=== PATIENT | male | born 1955 | race Caucasian/White ===

== ENCOUNTER 2022-06-01 08:24 | Emergency (ER) | payer MEDICAID, SELFPAY ==
[2022-06-01 08:28] VITALS: BP 154/94; PULSE 84; RESP 17; TEMP 36.8; O2SAT 100; BMI 19.8
--- NOTE | 2022-06-01 09:03 | ED_ITS ---
HPI - Skin/Abscess/Foreign Bdy General: Chief complaint: Skin/Abscess/Foreign Body Stated complaint: Body Rash Time Seen by Provider: 06/01/22 08:35 History of Present Illness: Patient is a 66-year-old male who comes to the ED with a rash. 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 About 6 weeks ago he developed a rash on his arms that was pruritic and ooze some clear type drainage. He has tried using calamine lotion but it has not helped. Rash is spread up onto neck and face. Denies any lip or tongue swelling, trouble breathing, throat tightening, vomiting or diarrhea. Patient also complains of some dental pain. Associated symptoms: Deny chills, fever(s), nausea or vomiting Review of Systems Const: Denies: fever(s), chills or fatigue Eyes: Denies: change in vision or eye discomfort ENMT: Reports: dental pain; Denies: throat pain, odynophagia, nasal discharge or nasal congestion Card: Denies: chest pain, palpitations, edema, swelling of feet/ankles, dyspnea on exertion or orthopnea Resp: Denies: dyspnea, productive cough or non-productive cough GI: Denies: abdominal pain, nausea, vomiting, diarrhea, constipation or hematochezia : Denies: flank pain, difficulty urinating, dysuria or hematuria Musc: Denies: neck pain, back pain or extremity swelling Skin/Breast: Reports: rash; Denies: new lesions Neuro: Denies: headache(s), numbness in extremities or weakness in extremities [facility] ED PFSH: Medical History (Updated 06/02/22 @ 07:31 by YVETTE Woodward) No pertinent family history Surgical History (Updated 06/02/22 @ 07:28 by YVETTE Woodward) No pertinent past surgical history Physical Exam Const: COMMON NORMALS: no acute distress, patient oriented x3 and alert HENMT: COMMON NORMALS: normocephalic HEAD & SCALP: normocephalic MOUTH: Normal oral and palatal mucosa present TEETH & GINGIVA: Yes caries and Yes poor dentition THROAT: posterior oropharynx normal and uvula midline Neck/C-Spine: COMMON NORMALS: supple GENERAL: Yes normal visual inspection Resp: COMMON NORMALS: normal respiratory effort, No retractions, No use of accessory muscles and clear to auscultation bilaterally AUSCULTATION: clear to auscultation bilaterally Cardio: COMMON NORMALS: regular rate, regular rhythm, S1 normal heart sound present, S2 normal heart sound present, No gallops present (Cardio), No clicks present (Cardio), No murmurs present (Cardio) and Peripheral pulses 2+ throughout RATE: regular rate RHYTHM: regular rhythm HEART SOUNDS: S1 normal heart sound present and S2 normal heart sound present PERIPHERAL PULSES: Peripheral pulses 2+ throughout GI: COMMON NORMALS: Normal to inspection, nondistended, normoactive bowel sounds present, Soft to palpation, non-tender and no masses PALPATION: Yes Soft to palpation : COMMON NORMALS: Yes no CVA tenderness BLADDER/KIDNEY EXAM: Yes no CVA tenderness Back/Pelvis: COMMON NORMALS: no CVA tenderness Extremity: NARRATIVE EXTREMITY EXAM: Bilateral upper extremity erythemic maculopapular rash covering forearm. GENERAL: Yes normal exam except as noted Neuro: COMMON NORMALS: patient oriented x3 SENSORIUM/ORIENTATION: Yes alert GAIT: Yes Normal gait present Skin: NARRATIVE SKIN EXAM: Patient has erythemic maculopapular rash on bilateral forearms and neck. Patient presents here with contact dermatitis type rash. Course Vital Signs: Vital signs: Vital Signs Temperature 98.2 F 06/01/22 08:28 Pulse Rate 84 06/01/22 08:28 Respiratory Rate 17 06/01/22 08:28 Blood Pressure 154/94 06/01/22 08:28 Pulse Oximetry 100 06/01/22 08:28 Oxygen Delivery Me thod 06/01/22 08:28 MDM - Skin/Abscess/Foreign Bdy Medicial Decision Making Patient is a 66-year-old male who comes to the ED with a rash. 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 About 6 weeks ago he developed a rash on his arms that was pruritic and ooze some clear type drainage. He has tried using calamine lotion but it has not helped. Rash is spread up onto neck and face. Denies any lip or tongue swelling, trouble breathing, throat tightening, vomiting or diarrhea. Vitals are stable. Patient appears nontoxic acute distress or pain. Patient has erythemic maculopapular rash on bilateral forearms and neck. Patient has poor dental health with multiple caries and decayed teeth throughout. Patient was given a dose of IM Kenalog here in the ED along with p.o. clindamycin. He is diagnosed with dermatitis and dental pain due to dental caries. He was discharged home with a prescription for Medrol Dosepak and clindamycin. Told to follow-up with PCP within the next week for reevaluation. Return ED precautions given. Patient understood and agreed with plan. Discharge Plan Discharge Patient Disposition: Home Clinical Impression: Dermatitis, Pain due to dental caries Condition: Stable Prescriptions: New methylprednisolone 4 mg tablets,dose pack See Rx Instructions .ROUTE .COMPLEX Qty: 21 0RF Rx Instructions: orally per package directions triamcinolone acetonide 0.1 % cream 1 applic topical BID PRN (Reason: rash) Qty: 80 0RF clindamycin HCl 150 mg capsule 300 mg PO QID 7 Days Qty: 56 0RF Discharge Orders: Discharge ED (Routine); Ordered 06/01/22 Ordered By: Victor Maneul Diaz Discharge Diet: Regular Discharge Activity: Resume usual activity Patient Instructions: Contact Dermatitis (ED) Activity Restrictions/Additional Instructions: Follow-up with medical provider in the next 7 to 10 days for reevaluation. 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 Take medications as prescribed. Start taking oral prednisone about 4-5 days after steroid shot today. Return to the ER or your medical provider if condition worsens. Please read and understand discharge instructions. Thank you for choosing [facility] for your healthcare needs today. Please realize this is an emergency room and that we are providing you with a medical screening exam and this may not be complete and all inclusive of all the testing and or work up that you may need to determine your ailment or severity of your illness. It is very important that you follow up as instructed or that you return to the Emergency Department should you have concerns or if your condition changes or worsens in any way. 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
[2022-06-01] MEDS: triamcinolone 40 mg/mL SDV IM (09:18)
[2022-06-01] MEDS: clindamycin 150 mg Capsule 300 MG PO (09:18)
== END 2022-06-01 09:26 | disposition home or self-care (01) ==
PROVIDERS: Emergency Provider Physician Assistant
DX: L30.9 Dermatitis, unspecified (principal); K02.9 Dental caries, unspecified
CPT/HCPCS: 96372; 99284; J3301